=== PATIENT | male | born 1960 | race Two or more races ===

== ENCOUNTER 2020-04-24 07:35 | Outpatient (CLI) | payer OTHER ==
[~2020-04-24 07:35] MED LIST: MAVIK1 MG PO; MEDROL2 MG PO; PROVENTIL S1 ML/5 MG IH; SINGULAIR4 MG PO; [UNRECOGNIZED DRUG - OTHER] MC
== END 2020-04-24 07:41 | disposition home or self-care (01) ==
LOC: NUCLEAR 07:35
PROVIDERS: ATTEND Urology
DX: R07.89 Other chest pain (principal); C61 Malignant neoplasm of prostate
CPT/HCPCS: 78452; 93017; A9500; J0153